=== PATIENT | male | born 1955 | race Caucasian/White ===

== ENCOUNTER → 2024-08-12 | Outpatient (CLI) | payer MEDICARE ==
--- NOTE | 2024-08-12 23:15 | HMCIMG ---
NM BONE SCAN WHOLE BODY REASON: Malignant neoplasm of prostate. COMPARISON: None TECHNIQUE: Total body bone imaging study was performed with 23 mCi of technetium MDP through intravenous route. FINDINGS: Degenerative changes are seen with increased activities in the shoulders, elbows, knees and ankles bilaterally and spine. No scintigraphic evidence of bone metastases is seen. IMPRESSION: No scintigraphic evidence of bone metastases is seen.
== END | disposition home or self-care (01) ==
LOC: RAH 13:02
PROVIDERS: ATTEND Urology
DX: C61 Malignant neoplasm of prostate (principal); M19.012 Primary osteoarthritis, left shoulder; M19.011 Primary osteoarthritis, right shoulder; M19.022 Primary osteoarthritis, left elbow; M19.021 Primary osteoarthritis, right elbow; M17.11 Unilateral primary osteoarthritis, right knee; M17.12 Unilateral primary osteoarthritis, left knee; M19.072 Primary osteoarthritis, left ankle and foot; M19.071 Primary osteoarthritis, right ankle and foot; M47.819 Spondylosis without myelopathy or radiculopathy, site unspecified
CPT/HCPCS: 78306; A9503

== ENCOUNTER → 2024-08-24 | Outpatient (CLI) | payer MEDICARE ==
[~2024-08-24] MED LIST: IOHEXOL 350 MG/ML 100ML INFUS..BTL IV ONE
--- NOTE | 2024-08-24 09:04 | HMCIMG ---
Exam Type: CT UROGRAM (ABD/PEL WWO) Clinical Information: MALIGNANT NEOPLASM OF PROSTATE Comparison: None Contrast: 100 cc's Isovue 370 IV, no complications or adverse reactions CT Dose Index (CTDI): 31.60 mGy Dose Length Product (DLP): 1740.80 total mGy-cm Findings: No evidence of nephro or ureterolithiasis is found. No hydronephrosis or ureteral dilatation is seen. The lung bases are clear. The stomach is unremarkable. It shows no wall thickening. No gross ulceration is seen. It is not overly distended. There are no surrounding inflammatory changes. No wall lesions are identified to suggest cancer. The spleen is unremarkable. It is not enlarged. The pancreas shows normal anatomy. It is not fatty replaced. It shows no lesions. The pancreatic duct is not dilated. The gallbladder is unremarkable. It shows no cholelithiasis. The gallbladder wall is normal in thickness. There is no pericholecystic fluid. The is no acute or chronic inflammation noted. The adrenal glands are unremarkable. There is no enlargement. No lesions are noted. The liver is unremarkable. It shows no focal masses. The appendix is unremarkable. It shows no evidence of inflammation. No appendicolith is seen. The small bowel is unremarkable. There is no evidence of dilatation to suggest obstruction. No evidence of adynamic ileus is seen. There is no small bowel wall thickening to suggest enteritis. The colon is unremarkable. The urinary bladder is unremarkable. There is no wall thickening to suggest tumor or inflammation. There are no intraluminal calculi. There are no diverticula. There is no evidence of chronic bladder outlet obstruction. There is no evidence of urinary bladder distention to suggest urinary retention. The prostate is enlarged. The bony and vascular structures are unremarkable for the patient's age. IMPRESSION: Prostatomegaly. No evidence of metastatic disease. This study was performed using dose reduction techniques to include automated exposure control and/or adjustment of the mA and/or kV according to patient size.
== END | disposition home or self-care (01) ==
LOC: RAH 07:25 → EDUNIT# 08:00
PROVIDERS: ATTEND Urology
DX: C61 Malignant neoplasm of prostate (principal); N40.0 Benign prostatic hyperplasia without lower urinary tract symptoms
CPT/HCPCS: 74178; Q9967